=== PATIENT | male | born 1955 | race Caucasian/White ===

== ENCOUNTER 2020-01-02 13:04 | Outpatient (REF) | payer OTHER, SELFPAY ==
[2020-01-02 15:08] LABS: Estimated Average Glucose 120 mg/dL; Hemoglobin A1C 149.1048 umol/L; Hemoglobin A1c % 5.8 %
[2020-01-02 15:21] LABS: Anion Gap 12 (12-20); Blood Urea Nitrogen 15 mg/dL (9-16); Calcium 8.6 mg/dL (8.4-10.2); Carbon Dioxide 28 mmol/L (22-29); Chloride 105 mmol/L (96-108); Estimated Glomerular Filt Rate > 60; Glucose Random 95 mg/dL (60-115); Potassium 4.2 mmol/l (3.3-5.1); Sodium 141 mmol/L (135-145)
== END 2020-01-02 13:05 | disposition home or self-care (01) ==
LOC: HO.LAB 13:04
PROVIDERS: PCP Internal Medicine; Visit Provider Internal Medicine
DX: E78.00 Pure hypercholesterolemia, unspecified (principal); R73.03 Prediabetes
CPT/HCPCS: 80048; 83036

== ENCOUNTER 2020-06-02 10:12 | Outpatient (REF) | payer OTHER, SELFPAY ==
[2020-06-02 13:22] LABS: MANUAL DIFF FLAG NO
[2020-06-02 13:23] LABS: Basophils Percent Auto 0.5 % (0-2); Eosinophils Absolute Auto 0.2 X10*3/uL (0.0-0.4); Eosinophils Percent Auto 2.7 % (0-4); Hematocrit 44.2 % (42-52); Hemoglobin 15.2 g/dl (14.0-18.0); Imm Gran Abs Auto 0.01 X10*3/uL (0.00-0.03); Imm Gran Pct Auto 0.2 % (0.0-0.4); Lymphocytes Absolute Auto 1.9 X10*3/uL (1.2-4.9); Lymphocytes Percent Auto 30.9 % (20-40); Mean Corpuscular HGB Conc 34.4 g/dl (31.0-36.0); Mean Corpuscular Hemoglobin 31.9 pg (27.0-33.0); Mean Corpuscular Volume 92.7 fL (80-98); Mean Platelet Volume 9.9 fL (9.4-12.4); Monocytes Absolute Auto 0.4 X10*3/uL (0.1-1.2); Monocytes Percent Auto 7.1 % (2-11); Neutrophils Absolute Auto 3.6 X10*3/uL (2.0-8.3); Neutrophils Percent Auto 58.6 % (45-73); Platelet Count 245 X10*3/uL (160-400); Red Blood Count 4.77 X10*6/uL (4.60-5.80); White Blood Count 6.2 X10*3/uL (4.8-10.8)
[2020-06-02 13:25] LABS: Glucose Urine UA NEG (NEG); Leukocyte Esterase Urine NEG (NEG); Nitrite Urine NEG (NEG); PH 5.5 (5.0-8.0); Specific Gravity - Urine >= 1.030 (1.005-1.025); Urine Blood NEG (NEG); Urine Ketones NEG (NEG); Urine Protein NEG (NEG-TRACE)
[2020-06-02 13:30] LABS: Appearance Urine TURBID; Color Urine YELLOW
[2020-06-02 13:52] LABS: Alanine Aminotransferase 39 U/L (0-40); Albumin Level 4.1 g/dL (3.5-5.0); Alkaline Phosphatase 63 U/L (39-117); Anion Gap 14 (12-20); Aspartate Amino Transferase 23 U/L (5-37); Bilirubin Total 1.6 mg/dL (0.0-1.0); Blood Urea Nitrogen 17 mg/dL (9-16); Calcium 8.8 mg/dL (8.4-10.2); Carbon Dioxide 26 mmol/L (22-29); Chloride 104 mmol/L (96-108); Cholesterol 128 mg/dL; Estimated Glomerular Filt Rate > 60; Glucose Fasting 104 mg/dL (60-99); HDL Cholesterol 36 mg/dL; LDL Cholesterol Calculated 64 mg/dl; Lipase 29 U/L (8-78); Potassium 4.3 mmol/L (3.3-5.1); Sodium 140 mmol/L (135-145); Total Protein 6.6 g/dL (6.5-8.0); Triglycerides 141 mg/dL
[2020-06-02 14:03] LABS: Prostate Specific Antigen Scr 1.62 ng/mL (<0.05-4.0)
== END 2020-06-02 10:13 | disposition home or self-care (01) ==
LOC: HO.10HDL 10:12
PROVIDERS: Visit Provider Internal Medicine
DX: Z00.00 Encounter for general adult medical examination without abnormal findings (principal); Z13.220 Encounter for screening for lipoid disorders; Z12.5 Encounter for screening for malignant neoplasm of prostate
CPT/HCPCS: 36415; 80053; 80061; 81003; 83690; 84153; 85025

== ENCOUNTER → 2020-06-09 08:21 | Outpatient (REF) | payer OTHER, SELFPAY ==
--- NOTE | ~2020-06-09 | NM_ITS ---
EXERCISE MYOCARDIAL PERFUSION STUDY INDICATION: Abnormal EKG, shortness of breath, assess for coronary disease and ischemia TECHNIQUE: The patient was brought in for an exercise perfusion study on 06/09/2020. Patient performed exercise as per Wade protocol and was injected 35 mCi of sestamibi once target heart rate was achieved. Images were obtained using the SPECT gamma camera interlaced with the gating device. Images were obtained in supine position. Resting perfusion study was performed on 06/10/2020. Patient was administered 35 mCi of sestamibi intravenously at rest. Images were then obtained in supine position. Total DLP 109mGy-cm. Images were processed with the software and compared side to side in short axis, horizontal long axis and vertical long axis views. FINDINGS: Raw images were reviewed. The stress perfusion study showed no significant perfusion defects. Both uncorrected as well as CT attenuation corrected images were reviewed. The gated study shows normal LV systolic function with calculated LVEF of 72%. LV cavity is normal in size. The gated study shows normal wall thickening and contraction of segments. Resting study shows no significant perfusion abnormality. Gating at rest reveals normal wall motion with ejection fraction at 75%. The findings are consistent with no reversible or fixed perfusion abnormality. NM/NM thaddeus perf SPECT rest & str IMPRESSION: 1. Myocardial perfusion imaging study shows normal myocardial perfusion. No evidence of any ischemia or infarction. 2. Gated LVEF is > 70% during stress and rest. 3. Transient ischemic dilatation not present. EKG component of the test reported separately.
--- NOTE | 2020-06-09 08:30 | CA_ITS ---
Acquisition Time: 2020-06-09 08:33:38 Total Exercise Time: 00:04:05 Test Indications: Abnormal ECG Medications: Protocol: SAMANTHA Max HR: 151 BPM 96% of Pred: 156 BPM Max BP: 190/086 mmHG Max Work Load: 5.8 METS PT EXERCISED ON STD SAMANTHA PROTOCOL FOR 4 MIN INTO STAGE 2. NO CP OR SOB. T-WAVE INVERSION IN 2,3,f,v3-6.. NO ARRHYTHMIAS. PROLONGED T-WAVE INVERSION INTO 10 MIN OF RECOVERY. CLINICALLY NEG BUT WITH LIMITED EXERCISE DURATION OF ONLY 4 MIN.. AWAIT SCAN RESULTS. Referred By: Irineo De La Rosa Overread By: ROCAEL DE LA ROSA MD
== END ==
LOC: HO.CARD 08:21
PROVIDERS: Visit Provider Internal Medicine
DX: R94.31 Abnormal electrocardiogram [ECG] [EKG] (principal); R06.09 Other forms of dyspnea
CPT/HCPCS: 78452; 93017; A9500

== ENCOUNTER → 2020-06-10 14:19 | Outpatient (BNVA) | payer OTHER, SELFPAY | PROVIDERS: PCP Internal Medicine; Referring Provider Internal Medicine; Visit Provider Internal Medicine | DX: R94.31 Abnormal electrocardiogram [ECG] [EKG] (principal); R94.39 Abnormal result of other cardiovascular function study; E78.5 Hyperlipidemia, unspecified; Z82.49 Family history of ischemic heart disease and other diseases of the circulatory system | CPT/HCPCS: 93005 ==

== ENCOUNTER → 2020-07-30 10:17 | Outpatient (REF) | payer OTHER, SELFPAY ==
--- NOTE | 2020-07-30 10:20 | CA_ITS ---
Transthoracic Echocardiogram Patient (Last, First, Middle): Karri Burr, Gender: Male Date of : 1955 Age: 65 Procedure Date: 07/30/2020 Procedure Type: Transthoracic Echocardiogram Location: OP Height: 180.34 cm Weight: 104.33 kg BSA: 2.24 m2 Heart Rate: bpm BP: 128 / 84 mmHg Microscopist: ROHINI Referring MD: Abad Black MD Symptoms: R94.31 - Abnormal electrocardiogram [ECG] [EKG] Study Quality: Fair ECG Rhythm: Sinus Conclusions: - The left ventricular systolic function is normal. The calculated ejection fraction is 65% by biplane method. - No obvious valvular pathology seen on this study. Findings Left Ventricle Normal left ventricular cavity size. There is normal left ventricular wall thickness. The left ventricular systolic function is normal. The calculated ejection fraction is 65% by biplane method. There is no evidence of regional wall motion abnormalities. Diastolic function is normal for age. Right Ventricle Normal right ventricular cavity size and systolic function. Atria Both atria are normal in size. Aortic Valve There is a normal trileaflet aortic valve. There is no aortic valve stenosis. There is no aortic valve regurgitation. Mitral Valve The mitral valve appears normal. There is trace mitral valve regurgitation. There is no mitral valve stenosis. Pulmonic Valve The pulmonic valve was not well visualized. Tricuspid Valve Normal tricuspid valve structure. There is trace tricuspid valve regurgitation. The pulmonary artery systolic pressure is normal. Great Vessels The asc aorta and aortic arch are normal in size. Venous The inferior vena cava is mildly dilated and collapses greater than 50% with inspiration. Pericardium/Pleural There is no evidence of pericardial effusion. Prior Study Comparison No prior study available for comparison. Recommendations, Care & Conclusions No obvious valvular pathology seen on this study. Measurements M-Mode Liner Measurements Normals - Women/Men AOV Cusps: 2.40 1.5-2.6 cm/m2 2D Linear Measurements RVIDd: 3.12 RVIDd Index: 1.39 IVSd: 0.88 0.6-0.9/0.6-1.0 cm LVIDd: 4.47 3.9-5.3/4.2-5.9 cm LVIDd Index: 2.00 2.4-3.2/2.2-3.1 cm/m2 LVIDs: 3.28 2.0-3.6 cm LVPWd: 1.06 0.7-1.1 cm Ao Root: 3.30 2.1-3.5 cm LA Diam: 3.70 2.7-3.8/3.0-4.0 cm LAIDs Index: 1.65 1.5-2.3 cm/m2 LV Mass: 181.54 67-162/88-224 g LV Mass Index: 81.04 43-95/49-115 g/m2 LVOT Diam: 2.00 3.0+(-)1.3 cm 2D Systolic Function EF 4C: 67.70 >55% EF 2C: 58.30 >55% EF BiP: 64.80 >55% Mitral Valve MV Pk E: 1.02 MV PK A: 0.56 MV Decel Time: 200.00 E/A: 1.80 E'Lateral: 10.90 E'Medial: 8.27 E/E' Med: 12.30 E/E' Lat: 9.40 PHT: 58.00 MVA PHT: 3.79 Decel [place]: 5.12 Aortic Valve AoV Pk Inder: 1.38 AoV Mn Inder: 1.03 AoV VTI: 0.29 AoV Pk Grad: 8.00 Aov Mn Grad: 5.00 ISIAH Cont.VTI: 2.08 LVOT LVOT Pk Inder: 0.97 LVOT Mn Inder: 0.67 LVOT VTI: 0.19 LVOT Pk Grad: 4.00 LVOT Mn Grad: 2.00 LVOT Diam: 2.00 LVOT Area: 3.14 Diastolic Function MV Pk E: 1.02 MV Pk A: 0.56 E/A: 1.80 E'Medial: 8.27 E/E' Med: 12.30 E' Laterial: 10.90 E/E' Lat: 9.40 Tricuspid Valve RA Press: 8.00 Great Vessels Aorta Ao Root-2D: 3.30 2.0-3.7 cm Ao Asc: 3.30 2.1-3.4 cm Ao Arch: 2.40 Pulmonary Valve PV Pk Inder: 0.90 Peak PV Grad: 3.00 Updated in Other Vendor System with Status of Final Abad Black MD electronically signed on 07/31/2020 2:16:12 PM with status of Final
== END ==
LOC: HO.CARD 10:17
PROVIDERS: Visit Provider Internal Medicine
DX: R94.31 Abnormal electrocardiogram [ECG] [EKG] (principal)
CPT/HCPCS: 93306

== ENCOUNTER → 2020-09-13 08:18 | Outpatient (BNVA) | payer OTHER, SELFPAY | PROVIDERS: PCP Internal Medicine; Referring Provider Internal Medicine; Visit Provider Internal Medicine ==

== ENCOUNTER 2021-12-16 06:34 | Outpatient (REF) | payer MEDICARE, SELFPAY ==
[2021-12-16 06:40] LABS: MANUAL DIFF FLAG NO
[2021-12-16 07:36] LABS: Basophils Percent Auto 0.4 % (0-2); Eosinophils Absolute Auto 0.2 X10*3/uL (0.0-0.4); Eosinophils Percent Auto 2.5 % (0-4); Hematocrit 43.2 % (42.0-52.0); Imm Gran Abs Auto 0.03 X10*3/uL (0.00-0.03); Imm Gran Pct Auto 0.3 % (0.0-0.4); Lymphocytes Absolute Auto 1.3 X10*3/uL (1.2-4.9); Mean Corpuscular HGB Conc 34.7 g/dl (31.0-36.0); Mean Corpuscular Hemoglobin 32.1 pg (27.0-33.0); Mean Corpuscular Volume 92.5 fL (80.0-98.0); Mean Platelet Volume 9.8 fL (9.4-12.4); Monocytes Absolute Auto 0.6 X10*3/uL (0.1-1.2); Monocytes Percent Auto 6.1 % (2-11); Neutrophils Absolute Auto 6.9 x10*3/uL (2.0-8.3); Neutrophils Percent Auto 76.7 % (45-73); Platelet Count 215 X10*3/uL (160-400); Red Blood Count 4.67 X10*6/uL (4.60-5.80); Red Cell Distribution Width 12.1 % (11.0-16.0)
[2021-12-16 08:00] LABS: Alanine Aminotransferase 40 U/L (0-40); Alkaline Phosphatase 63 U/L (39-117); Anion Gap 17 (12-20); Aspartate Amino Transferase 22 U/L (5-37); Bilirubin Total 1.5 mg/dL (0.0-1.0); Blood Urea Nitrogen 15 mg/dL (9-16); Calcium 8.8 mg/dL (8.4-10.2); Carbon Dioxide 24 mmol/L (22-29); Chloride 105 mmol/L (96-108); Cholesterol 134 mg/dL; Estimated Glomerular Filt Rate > 60; Glucose Fasting 113 mg/dL (60-99); HDL Cholesterol 34 mg/dL; LDL Cholesterol Calculated 78 mg/dl; Potassium 4.4 mmol/L (3.3-5.1); Sodium 142 mmol/L (135-145); Total Protein 6.4 g/dL (6.5-8.0); Triglycerides 110 mg/dL
[2021-12-16 08:24] LABS: Prostate Specific Antigen 2.07 ng/mL (<0.05-4.0)
== END 2021-12-16 06:35 | disposition home or self-care (01) ==
LOC: HO.LAB 06:34
PROVIDERS: PCP Internal Medicine; Visit Provider Internal Medicine
DX: Z00.00 Encounter for general adult medical examination without abnormal findings (principal); Z12.5 Encounter for screening for malignant neoplasm of prostate
CPT/HCPCS: 36415; 80053; 80061; 84153; 85025

== ENCOUNTER 2022-01-09 09:58 | Outpatient (REF) | payer MEDICARE, SELFPAY ==
--- NOTE | ~2022-01-09 | US_ITS ---
EXAMINATION: US ABDOMEN COMPLETE CLINICAL INFORMATION: Enlarged liver. COMPARISON: Ultrasound abdomen 09/12/2012. TECHNIQUE: Real-time imaging of the abdominal viscera. FINDINGS: PANCREAS: Head and the body of the pancreas is homogeneous in echotexture. The tail is not visualized. ABDOMINAL AORTA: The proximal, mid, and distal segments are normal in caliber. INFERIOR VENA CAVA: Visualized portions are normal. LIVER: The liver is enlarged. The liver contour is normal. There is diffuse increased echogenicity seen throughout the liver. No focal hepatic lesion. There is no intrahepatic biliary duct dilatation seen. GALLBLADDER: There are echogenic mobile gallstones with mild wall thickness of 0.3 cm. The gallbladder is physiologically distended. No pericholecystic fluid collection or tenderness in the right upper quadrant. COMMON BILE DUCT: Normal in caliber measuring 0.5 cm in diameter. RIGHT KIDNEY: Normal. No hydronephrosis. No renal calculi or focal parenchymal lesions. The kidney measures 12.4 cm in maximum dimension. LEFT KIDNEY: Normal. No hydronephrosis. No renal calculi or focal parenchymal lesions. The kidney measures 12.2 cm in maximum dimension. SPLEEN: Normal. The spleen measures 10.5 cm in maximum dimension. FREE FLUID: None. US/US abdomen complete IMPRESSION: Cholelithiasis with mild wall thickening. The largest mobile gallbladder measures 0.8 cm. Mild hepatomegaly with diffuse hepatic steatosis. No focal lesion seen.
== END 2022-01-09 09:59 | disposition home or self-care (01) ==
LOC: HO.US 09:58
PROVIDERS: PCP Internal Medicine; Visit Provider Internal Medicine
DX: R22.9 Localized swelling, mass and lump, unspecified (principal)
CPT/HCPCS: 76700

== ENCOUNTER 2023-06-07 07:06 | Outpatient (REF) | payer MEDICARE, SELFPAY ==
[2023-06-07 07:28] LABS: MANUAL DIFF FLAG NO
[2023-06-07 08:01] LABS: Basophils Percent Auto 0.5 % (0-2); Eosinophils Absolute Auto 0.2 X10*3/uL (0.0-0.4); Eosinophils Percent Auto 2.6 % (0-4); Hemoglobin 14.5 g/dl (14.0-18.0); Imm Gran Abs Auto 0.02 X10*3/uL (0.00-0.03); Imm Gran Pct Auto 0.3 % (0.0-0.4); Lymphocytes Absolute Auto 1.8 X10*3/uL (1.2-4.9); Lymphocytes Percent Auto 28.5 % (20-40); Mean Corpuscular HGB Conc 34.5 g/dl (31.0-36.0); Mean Corpuscular Hemoglobin 31.3 pg (27.0-33.0); Mean Corpuscular Volume 90.5 fL (80.0-98.0); Mean Platelet Volume 9.4 fL (9.4-12.4); Monocytes Absolute Auto 0.5 X10*3/uL (0.1-1.2); Monocytes Percent Auto 7.9 % (2-11); Neutrophils Absolute Auto 3.9 x10*3/uL (2.0-8.3); Neutrophils Percent Auto 60.2 % (45-73); Platelet Count 230 X10*3/uL (160-400); Red Blood Count 4.64 X10*6/uL (4.60-5.80); Red Cell Distribution Width 12.4 % (11.0-16.0); White Blood Count 6.5 X10*3/uL (4.8-10.8)
[2023-06-07 08:06] LABS: Estimated Average Glucose 120 mg/dL; Hemoglobin A1c % 5.8 % (<6.0)
[2023-06-07 08:37] LABS: Alanine Aminotransferase 38 U/L (0-40); Albumin Level 3.9 g/dL (3.5-5.0); Alkaline Phosphatase 56 U/L (39-117); Anion Gap 9 (12-20); Aspartate Amino Transferase 23 U/L (5-37); Bilirubin Total 1.4 mg/dL (0.0-1.0); Blood Urea Nitrogen 16 mg/dL (9-16); Calcium 8.5 mg/dL (8.4-10.2); Carbon Dioxide 28 mmol/L (22-29); Chloride 108 mmol/L (96-108); Cholesterol 118 mg/dL (<200); Estimated Glomerular Filt Rate > 60; Glucose Fasting 122 mg/dL (60-99); HDL Cholesterol 31 mg/dL (>40); LDL Cholesterol Calculated 64 mg/dL (<100); Potassium 3.9 mmol/L (3.3-5.1); Sodium 141 mmol/L (135-145); Total Protein 6.5 g/dL (6.5-8.0); Triglycerides 116 mg/dL (<150)
[2023-06-07 08:44] LABS: Prostate Specific Antigen 2.05 ng/mL (<0.05-4.0)
[2023-06-07 08:56] LABS: Appearance Urine Clear; Color Urine Yellow; Glucose Urine UA Negative (Negative); Leukocyte Esterase Urine Negative (Negative); Nitrite Urine Negative (Negative); PH 5.5 (5.0-9.0); Specific Gravity - Urine 1.025 (1.005-1.025); Urine Blood Negative (Negative); Urine Ketones Negative (Negative); Urine Protein Negative (Neg-Trace)
[2023-06-07 08:57] LABS: Thyroid Stimulating Hormone 1.09 uIU/mL (0.32-4.0)
[2023-06-07 09:29] LABS: Creatinine Urine 277.47 mg/dL; Microalbum/Creatinine Ratio Ur 7.2 ug/mg cr (<30)
== END 2023-06-07 07:07 | disposition home or self-care (01) ==
LOC: HO.LAB 07:06
PROVIDERS: PCP Internal Medicine; Visit Provider Internal Medicine
DX: E78.00 Pure hypercholesterolemia, unspecified (principal); N40.0 Benign prostatic hyperplasia without lower urinary tract symptoms; R73.03 Prediabetes; Z12.5 Encounter for screening for malignant neoplasm of prostate
CPT/HCPCS: 36415; 80053; 80061; 81003; 82043; 82570; 83036; 84153; 84443; 85025

== ENCOUNTER 2024-03-04 10:22 | Outpatient (REF) | payer MEDICARE, SELFPAY ==
[2024-03-04 13:04] LABS: MANUAL DIFF FLAG NO
[2024-03-04 13:07] LABS: Basophils Percent Auto 0.7 % (0-2); Eosinophils Absolute Auto 0.2 X10*3/uL (0.0-0.4); Hematocrit 41.8 % (42.0-52.0); Hemoglobin 14.6 g/dl (14.0-18.0); Imm Gran Abs Auto 0.02 X10*3/uL (0.00-0.03); Imm Gran Pct Auto 0.3 % (0.0-0.4); Lymphocytes Absolute Auto 1.5 X10*3/uL (1.2-4.9); Lymphocytes Percent Auto 25.1 % (20-40); Mean Corpuscular HGB Conc 34.9 g/dl (31.0-36.0); Mean Corpuscular Hemoglobin 32.1 pg (27.0-33.0); Mean Corpuscular Volume 91.9 fL (80.0-98.0); Mean Platelet Volume 9.3 fL (9.4-12.4); Monocytes Absolute Auto 0.4 X10*3/uL (0.1-1.2); Monocytes Percent Auto 6.8 % (2-11); Neutrophils Absolute Auto 3.9 x10*3/uL (2.0-8.3); Neutrophils Percent Auto 64.1 % (45-73); Platelet Count 267 X10*3/uL (160-400); Red Blood Count 4.55 X10*6/uL (4.60-5.80); Red Cell Distribution Width 12.4 % (11.0-16.0); White Blood Count 6.1 X10*3/uL (4.8-10.8)
[2024-03-04 13:14] LABS: INTERNATIONAL NORM RATIO 0.9 (0.9-1.1); Prothrombin Time 10.5 SEC (10.9-12.4)
[2024-03-04 13:16] LABS: Partial Thromboplastin Time 28.5 SEC (26.0-36.8)
[2024-03-04 13:18] LABS: Alanine Aminotransferase 36 U/L (0-40); Alkaline Phosphatase 64 U/L (39-117); Anion Gap 7 (12-20); Aspartate Amino Transferase 25 U/L (5-37); Bilirubin Total 1.1 mg/dL (0.0-1.0); Blood Urea Nitrogen 17 mg/dL (9-16); Calcium 8.5 mg/dL (8.4-10.2); Carbon Dioxide 29 mmol/L (22-29); Chloride 108 mmol/L (96-108); Estimated Glomerular Filt Rate > 60; Glucose Random 115 mg/dL (60-115); Potassium 4.4 mmol/L (3.3-5.1); Sodium 140 mmol/L (135-145); Total Protein 6.9 g/dL (6.5-8.0)
== END 2024-03-04 10:23 | disposition home or self-care (01) ==
LOC: HO.10HDL 10:22
PROVIDERS: Visit Provider Internal Medicine
DX: I10 Essential (primary) hypertension (principal); E78.00 Pure hypercholesterolemia, unspecified; N40.0 Benign prostatic hyperplasia without lower urinary tract symptoms
CPT/HCPCS: 36415; 80053; 85025; 85610; 85730

== ENCOUNTER 2024-09-11 14:00 | Outpatient (AMB) | payer MEDICARE, SELFPAY ==
--- NOTE | 2024-09-11 13:59 | A.OFFPC_ITS ---
Vital Signs 09/11/24 14:02 Height 5 ft 11 in Weight 219 lb BMI 30.5 BP 132/70 Blood Pressure Location Lt brachial Position Sitting Respiration 16 Pulse 79 Pulse Source Pulse Oximeter Temp 97.0 F Temp Source Temporal Artery Scan Pulse Oximetry (%) 96 Oxygen Delivery Method Room Air Intake Visit Reasons: Routine - see comments Fiber Design Engineer Required: No Accompanied by: Self / Same As Patient Allergies No Known Allergies (No Known Allergies*) Allergy (Verified 09/11/24 13:59) Tobacco use date assessed: 09/11/24 HPI HPI Comments History of Present Illness Details The patient is a 69 year old male with a past medical history of hyperlipidemia, BPH, etoh, tobacco presenting for follow up. Last seen by pcp in February Hyperlipidemia-on lipitor 20mg daily. Colonoscopy 2019-Dr Damon-scheduled for upcoming 5 yr recall ROS CONSTITUTIONAL: Denies weight loss, fever and chills. HEENT: Denies changes in vision and hearing. RESPIRATORY: Denies SOB and cough. CV: Denies palpitations and CP GI: Denies abdominal pain, nausea, vomiting and diarrhea. : Denies dysuria and urinary frequency. MSK: Denies new myalgia and joint pain. SKIN: Denies rash and pruritus. NEUROLOGICAL: Denies headache PSYCHIATRIC: Denies recent changes in mood. PHYSICAL EXAM: GENERAL: Alert and oriented x 3. NAD EYES: EOMI. Anicteric. HENT: Moist mucous membranes. No scleral icterus. No cervical lymphadenopathy. LUNGS: Clear to auscultation bilaterally. CARDIOVASCULAR: Regular rate and rhythm. No murmur. No JVD. ABDOMEN: Soft, non-tender +bs EXTREMITIES: No edema. Non-tender. SKIN: No rashes or lesions. Warm. NEUROLOGIC: No focal neurological deficits. CN II-XII grossly intact PSYCHIATRIC: Cooperative. Appropriate mood and affect [facility] Medical History Family history of coronary artery disease Other and unspecified hyperlipidemia Surgical History History of colonoscopy (~09/05/19) No pertinent past surgical history Family History Father Kidney disease Mother History of four vessel coronary artery bypass graft Sister History of heart valve replacement Sister Ovarian cancer Social History Patient Tobacco Use Status: Current everyday Tobacco user Cigarettes Per Day: 2 Years Smoked: 49 years e-Cigarette/Vaping Use: Currently Using Physical exam (Primary Care) Vital Signs: Last Vital Signs Temp 97.0 F 09/11/24 14:02 Pulse 79 09/11/24 14:02 Resp 16 09/11/24 14:02 BP 132/70 09/11/24 14:02 Pulse Ox 96 09/11/24 14:02 Oxygen Delivery Method Room Air 09/11/24 14:02 BMI result Body Mass Index 30.5 Tobacco/Smoking Status: Tobacco use Status Tobacco use date assessed 09/11/24 09/11/24 14:05 Patient Tobacco Use Status Current everyday Tobacco 09/11/24 14:05 e-Cigarette/Vaping Use Currently Using 09/11/24 14:05 Coding Level of Care Code New Pt Level 4 (03166) Complex EM visit Add On G2211 Diagnoses Family history of coronary artery disease Z82.49 Tobacco use Z72.0 Hyperlipidemia, unspecified hyperlipidemia type E78.5 Hyperlipidemia type: unspecified Assessment & Plan Assessment & Plan (1) Family history of coronary artery disease: Code(s): Z82.49 - Family history of ischemic heart disease and other diseases of the circulatory system Category: Medical (2) Tobacco use: Code(s): Z72.0 - Tobacco use Category: Social Hx (3) Hyperlipidemia: Code(s): E78.5 - Hyperlipidemia, unspecified Category: Medical Qualifiers: Hyperlipidemia type: unspecified Qualified Code(s): E78.5 - Hyperlipidemia, unspecified Plan 69 year old to establish care past medical, surgical, social reviewed HLD-continue statin Tobacco use-referral to ldct screening Labs ordered Orders: Orders Lipid Panel 09/12/24 E78.5 - Hyperlipidemia, unspecified, R53.83 - Other fatigue, R79.89 - Other specified abnormal findings of blood chemistry, Z13.0 - Encounter for screening for diseases of the blood and blood-forming organs and certain disorders involving the immune mechanism, Z13.228 - Encounter for screening for other metabolic disorders Hemoglobin A1c 09/12/24 E78.5 - Hyperlipidemia, unspecified, R53.83 - Other fatigue, R79.89 - Other specified abnormal findings of blood chemistry, Z13.0 - Encounter for screening for diseases of the blood and blood-forming organs and certain disorders involving the immune mechanism, Z13.228 - Encounter for screening for other metabolic disorders Vitamin D 25-OH (D2 and D3) 09/12/24 E78.5 - Hyperlipidemia, unspecified, R53.83 - Other fatigue, R79.89 - Other specified abnormal findings of blood chemistry, Z13.0 - Encounter for screening for diseases of the blood and blood- forming organs and certain disorders involving the immune mechanism, Z13.228 - Encounter for screening for other metabolic disorders Vitamin B12 and Folate 09/12/24 E78.5 - Hyperlipidemia, unspecified, R53.83 - Other fatigue, R79.89 - Other specified abnormal findings of blood chemistry, Z13.0 - Encounter for screening for diseases of the blood and blood-forming organs and certain disorders involving the immune mechanism, Z13.228 - Encounter for screening for other metabolic disorders Complete Blood Count Auto Diff 09/12/24 E78.5 - Hyperlipidemia, unspecified, R53.83 - Other fatigue, R79.89 - Other specified abnormal findings of blood chemistry, Z13.0 - Encounter for screening for diseases of the blood and blood- forming organs and certain disorders involving the immune mechanism, Z13.228 - Encounter for screening for other metabolic disorders Comprehensive Met. Panel 09/12/24 E78.5 - Hyperlipidemia, unspecified, R53.83 - Other fatigue, R79.89 - Other specified abnormal findings of blood chemistry, Z13.0 - Encounter for screening for diseases of the blood and blood-forming organs and certain disorders involving the immune mechanism, Z13.228 - Encounter for screening for other metabolic disorders Prostate Specific Antigen 09/12/24 E78.5 - Hyperlipidemia, unspecified, R53.83 - Other fatigue, R79.89 - Other specified abnormal findings of blood chemistry, Z13.0 - Encounter for screening for diseases of the blood and blood-forming organs and certain disorders involving the immune mechanism, Z13.228 - Encounter for screening for other metabolic disorders Referrals Lung Cancer Screening Referral Z72.0 - Tobacco use
[2024-09-11 14:02] VITALS: BP 132/70; PULSE 79; RESP 16; TEMP 36.1; O2SAT 96; BMI 30.5
--- OUTSIDE RECORDS SUMMARY | 2024-09-11 14:12 | XMS_ITS | Encounter Summary ---
Author Organization [facility] Address [address] [place] [address] Phone Care Team Providers Care Quilt Maker Name Role Phone Marly Friedman MD Primary Care Provider + [phone] Encounter Details Date Type Department Care Team (Late st Contact Info) Description 07/31/2024 Procedure Pass OR Admitting Dept - Virtual Department [address] [place] [address] Social History Tobacco Use Types Packs/Day Years Used Date Smoking Tobacco: Every Day Cigarettes Smokeless Tobacco: Never Comments:Smoking pack per we ek Alcohol Use Standard Drinks/Week Comments Yes 8 (1 standard drink = 0.6 oz pur e alcohol) weekly Education Answer Date Recorded Are you interested in more education? Not on nisreen e 07/30/2024 Are you concerned about learning? Not on file 07/30/2024 No 07/30/2024 No 07/30/2024 Digital Access Answer Date Recorded No 07/30/2024 No 07/30/2024 Reliable internet access at home? Not on file 07/30/2024 Device with a working camera? Not on file Intimate Partner Violence Answer Date R ecorded Are you denied basic needs s uch as food, clothing, or medical care? No 07/31/2024 In the past 12 months have y ou been in a relationship with a person who hurts, threatens, or tries to control you? No 07/31/2024 Are you denied basic needs s uch as food, clothing, or medical care? No 07/31/2024 In the past 12 months have y ou been in a relationship with a person who hurts, threatens, or tries to control you? No 07/31/2024 Sex and Gender Information Value Date Recorded Sex Assigned at Not on file Legal Sex Male 1:51 PM EDT Gender Identity Not on file Sexual Orientation Not on file documented as of this encounter Plan of Treatment Not on file documented as of this encounter Visit Diagnoses Not on filedocumented in this encounter Care Teams Quilt Maker Relationship Specialty Start Date End Date Marly Friedman MD [address] [place] [address] [place] [address] PCP - General Internal Medicine 07/30/24 documented as of this encounter Additional Source Comments The information contained in this document represents components of the legal health record. It is not the complete legal health record.[facility]
--- OUTSIDE RECORDS SUMMARY | 2024-09-11 14:12 | XMS_ITS | Patient Health Record ---
Author Organization [facility] Address [address] [place] [id number] Care Team Providers Care Political Science Professor Name Role Phone Marly Miller M.D. Primary Care Provider Unavail Phoenix Bermudez Jr Unavailable Reason For Referral No Information Medications Medication SIG (Take, Route, Frequency, Duration) Notes Start Date End Date Status MiraLax (colon prep) 8.3 ounce ((238) grams mixed with Gatorade or Crystal Light orally begin at 5:00 p.m. the day before the procedure for 1 day 06/25/2019 Active Atorvastatin Calcium 20 MG TAKE 1 TABLET BY MOUTH EVERY DAY Oral for 90 Active Vitamin D3 1.25 MG (37296 UT) 1 capsule Orally Once a day Active Immunizations Vaccine Route Administration Date Status Comme nts Influenza Unknown 01/12/2019 Administered Social History Tobacco Use: Social History Observation Description Date Details (start date - stop date) Current Smoker NA - NA Tobacco Use/Smoking Question Answer Notes Patient is a current smoker How often do you smoke cigarettes? every day How many cigarettes a day do you smoke? 5 or les s Alcohol Screen Question Answer Notes Did you have a drink contain ing alcohol in the past year? Yes How often did you have a dri nk containing alcohol in the past year? 2 to 4 times a month (2 points) How many drinks did you have on a typical day when you were drinking in the past year? 5 or 6 drinks (2 points) Points 4 Interpretation Positive Problems Problem Type SNOMED Code ICD Code Onset Dates Problem Status W/U Status Risk Notes Problem 384204003 Colon cancer screening (Z12.11) Active confirmed Problem 475259332 Encounter for other preprocedural examination (Z01.818) Active confirmed Plan Of Treatment Future Test Test Name Order Date COLONOSCOPY 06/25/2019 Next Appt Details Provider Name:Phoenix Cerna jay Jr, 12/10/2024 10:20:00 AM, [address] [facility], [address], [place], [address], Insurance Providers Payer Name Payer Address Payer Phone Subscriber Number Group Number Insured Name Patient Relationship to Insured Coverage Start Date Coverage End Date [facility] [address] [place], [place] [id number] JACKIE WOODWARD Self - patient is the insured Medical (General) History Medical History History ICD Code elevated cholesterol low vitamin D Surgical History Surgery Date(Month/Year)
== END 2024-09-11 14:27 | disposition home or self-care (01) ==
LOC: HO.HMCHD 14:00
PROVIDERS: PCP Internal Medicine; Visit Provider Internal Medicine
DX: Z82.49 Family history of ischemic heart disease and other diseases of the circulatory system (principal); Z72.0 Tobacco use; E78.5 Hyperlipidemia, unspecified

== ENCOUNTER → 2024-09-11 14:00 | Outpatient (BNVA) | payer MEDICARE, SELFPAY | PROVIDERS: PCP Internal Medicine; Visit Provider Internal Medicine | DX: E78.5 Hyperlipidemia, unspecified (principal); N40.0 Benign prostatic hyperplasia without lower urinary tract symptoms; Z72.0 Tobacco use; Z79.899 Other long term (current) drug therapy; Z82.49 Family history of ischemic heart disease and other diseases of the circulatory system | CPT/HCPCS: 99202 ==

== ENCOUNTER 2024-09-12 08:16 | Outpatient (REF) | payer MEDICARE, SELFPAY ==
--- OUTSIDE RECORDS SUMMARY | 2024-09-12 08:25 | XMS_ITS | Patient Health Record ---
Author Organization [facility] Address [address] [place] [id number] Care Team Providers Care Telephone Ad Taker Name Role Phone Marly Miller M.D. Primary [...] for 90 Active Vitamin D3 1.25 MG (81008 UT) 1 capsule Orally Once a day [...] Problem Status W/U Status Risk Notes Problem 069801373 Colon cancer screening (Z12.11) Active confirmed Problem 122303928 Encounter for other preprocedural examination (Z01.818) Active confirmed Plan Of Treatment Future Test Test Name Order Date COLONOSCOPY 06/25/2019 Next Appt Details Provider Name:Phoenix Cerna jay Jr, 12/10/2024 10:20:00 AM, [address] [facility], [address], [place], [address], Insurance Providers Payer Name Payer Address Payer Phone Subscriber Number Group Number Insured Name Patient Relationship to Insured Coverage Start Date Coverage End Date [facility] [address] [place], [place] [id number] [phone] [id number] JACKIE WOODWARD Self - patient is the insured Medical (General) History Medical History History ICD Code elevated cholesterol low vitamin D Surgical History Surgery Date(Month/Year)
--- OUTSIDE RECORDS SUMMARY | 2024-09-12 08:25 | XMS_ITS | Encounter Summary ---
Author Organization [facility] Address [address] [place] [address] Phone Care Team Providers Care Boiler Shop Supervisor Name Role Phone Marly Friedman MD Primary Care Provider + [phone] Encounter Details Date Type Department Care Team (Late st Contact Info) Description 07/31/2024 Procedure Pass OR Admitting Dept - Virtual Department [address] [place] [address] Social History Tobacco Use Types Packs/Day Years [...] on filedocumented in this encounter Care Teams Boiler Shop Supervisor Relationship Specialty Start Date End Date Marly Friedman MD [address] [place] [address] [place] [address] PCP - General Internal Medicine 07/30/24 documented as of this encounter Additional Source Comments The information contained in this document represents components of the legal health record. It is not the complete legal health record.[facility]
[2024-09-12 08:33] LABS: MANUAL DIFF FLAG NO
[2024-09-12 08:55] LABS: Hematocrit 40.3 % (42.0-52.0); Hemoglobin 14.2 g/dl (14.0-18.0); Imm Gran Abs Auto 0.01 X10*3/uL (0.00-0.03); Imm Gran Pct Auto 0.2 % (0.0-0.4); Lymphocytes Absolute Auto 1.7 X10*3/uL (1.2-4.9); Mean Corpuscular HGB Conc 35.2 g/dl (31.0-36.0); Mean Corpuscular Hemoglobin 32.0 pg (27.0-33.0); Mean Corpuscular Volume 90.8 fL (80.0-98.0); NRBC Abs Auto 0.000 X10*3/uL (0.0-0.012); NRBC Pct Auto 0.0 /100WBC (0.0-0.2); Platelet Count 226 X10*3/uL (160-400); Red Blood Count 4.44 X10*6/uL (4.60-5.80); White Blood Count 6.1 X10*3/uL (4.8-10.8)
[2024-09-12 09:06] LABS: Hemoglobin A1C 150.2014 umol/L; Total Hemoglobin (HGBA1C) 3781.5542 umol/L
[2024-09-12 09:21] LABS: Alanine Aminotransferase 29 U/L (0-40); Albumin Level 4.1 g/dL (3.5-5.0); Alkaline Phosphatase 74 U/L (39-117); Anion Gap 10 (12-20); Aspartate Amino Transferase 27 U/L (5-37); Blood Urea Nitrogen 14 mg/dL (9-16); Calcium 8.4 mg/dL (8.4-10.2); Carbon Dioxide 26 mmol/L (22-29); Chloride 109 mmol/L (96-108); Cholesterol 115 mg/dL (<200); Estimated Glomerular Filt Rate > 60; HDL Cholesterol 34 mg/dL (>40); Potassium 4.3 mmol/L (3.3-5.1); Sodium 141 mmol/L (135-145); Total Protein 6.5 g/dL (6.5-8.0); Triglycerides 83 mg/dL (<150)
[2024-09-12 09:51] LABS: Folate 13.8 ng/mL (> or = 4.0); Prostate Specific Antigen 3.86 ng/mL (<0.05-4.0); Vitamin B12 522 pg/mL (200-900)
[2024-09-16 17:47] LABS: Vitamin D 25-OH, D2 <4 ng/mL; Vitamin D 25-OH, D3 37 ng/mL; Vitamin D 25-OH, Total 37 ng/mL (30-100)
== END 2024-09-12 08:17 | disposition home or self-care (01) ==
LOC: HO.LAB 08:16
PROVIDERS: PCP Internal Medicine; Visit Provider Internal Medicine
DX: Z13.228 Encounter for screening for other metabolic disorders (principal); Z13.0 Encounter for screening for diseases of the blood and blood-forming organs and certain disorders involving the immune mechanism; E78.5 Hyperlipidemia, unspecified; R79.89 Other specified abnormal findings of blood chemistry; R53.83 Other fatigue; Z12.5 Encounter for screening for malignant neoplasm of prostate
CPT/HCPCS: 36415; 80053; 80061; 82306; 82607; 82746; 83036; 84153; 85025

== ENCOUNTER 2024-11-07 09:43 | Outpatient (AMB) | payer MEDICARE, SELFPAY ==
--- NOTE | 2024-11-07 07:58 | MHC.OFFVIS ---
Intake Visit Reasons: Current Smoker Allergies No Known Allergies (No Known Allergies*) Allergy (Verified 09/11/24 13:59) HPI HPI Current Smoker: Details: Initial visit for this 69yo smoker with a 25+PYH. Patient started smoking at age 16 for 53 years at 1/2ppd. Currently down to 1/4ppd. . Denies marijuana use. Denies second hand smoke exposure. Denies exposure to chemicals or substances like asbestos. . Denies known family history of lung cancer. Denies personal history of cancers. Denies chest CT in last year. . Denies recent travel outside the [place]. Denies recent respiratory illness or recent hospitalization for respiratory issues. History of testing positive for COVID. Admits receiving COVID Vaccine. . Denies fever, chills, new/worsening cough, hemoptysis, hoarseness or dysphagia. Denies significant chest pain, significant dyspnea or unintentional weight loss. Patient Lung Cancer Screening Questionnaire reviewed with patient by provider. . Shared Decision Making Completed. Patient meets criteria. Discussed in detail with patient, the risk vs benefit of LDCT screening. Patient consents to proceed with scan. Discussed smoking cessation. [facility] Medical History (Updated 11/07/24 @ 09:49 by Linda Cosme PA-C) Tubular adenoma of colon Hyperlipidemia Nicotine dependence, cigarettes, uncomplicated Family history of coronary artery disease Surgical History (Updated 09/19/24 @ 07:58 by Linda Cosme PA-C) History of nasal polypectomy History of colonoscopy Family History Father Kidney disease Mother History of four vessel coronary artery bypass graft Sister History of heart valve replacement Sister Ovarian cancer Social History (Updated 11/07/24 @ 09:50 by Linda Cosme PA-C) Patient Tobacco Use Status: Current everyday Tobacco user Cigarettes Per Day: 5 Years Smoked: (onset 16yo, 1/2ppd x 53yrs, now 1/4ppd, 25+PYH) e-Cigarette/Vaping Use: Currently Using Assessment & Plan Assessment & Plan (1) Nicotine dependence, cigarettes, uncomplicated: Comment: (onset 16yo, 1/2ppd x 53yrs, now 1/4ppd, 25+PYH) Code(s): F17.210 - Nicotine dependence, cigarettes, uncomplicated Category: Medical Plan: - SDM visit completed today in office. - Patient meets criteria for LDCT for lung cancer screening purposes and is asymptomatic. - Smoking cessation counseling offered. Patients can always call [phone]. - Will arrange for a LDCT scan of the chest for screening purposes at [facility]. - Risks, benefits, and alternatives were discussed in detail and the patient agrees to proceed. - Risks discussed include but are not limited to: radiation exposure, anxiety during testing and while awaiting results, false negatives, false positives and possibility of additional intervention such as further imaging or surgical procedures for benign disease. - Benefits are obviously detection of lung cancer at an early stage which can lead to improved outcomes. - Discussed the importance of screening program compliance with adherence to yearly LDCT scan as scheduled - or sooner interval scans for personalized screening regimen. - Discussed follow up plan. Our office will send a letter discussing results and if needed set up phone call and office visit based on CT findings. - Patient educated on results categorization and the management decisions for suspicious findings potentially found on the screening LDCT scan. Any patient with a Lung RADS score of 3 or 4 will be reviewed by a multidisciplinary team at [facility] to form a plan of action in regards to scan findings. - If further work up is warranted for a suspicious lung finding this will be followed by the Lung Cancer Screening program in conjunction with the Thoracic Surgery Department at [facility]. - A copy of the office note and LDCT will be sent to the patient's PCP - as well as documentation on any associated further plans of care. - Incidental findings on LDCT are the PCP's responsibility. These findings are indicated with an S finding on the LDCT Assessment. A note discussing the findings will be sent to the PCP who is then responsible for further management. - All questions answered.? Coding Level of Care Code Lung Cancer Screening G0296 Diagnoses Nicotine dependence, cigarettes, uncomplicated F17.210
--- OUTSIDE RECORDS SUMMARY | 2024-11-07 10:46 | XMS_ITS | Patient Health Record ---
Author Organization [facility] Address [address] [place] [address] Care Team Providers Care Internal Carver Name Role Phone Marly Miller M.D. Primary [...] for 90 Active Vitamin D3 1.25 MG (14957 UT) 1 capsule Orally Once a day [...] Problem Status W/U Status Risk Notes Problem 938814510 Colon cancer screening (Z12.11) Active confirmed Problem 298466556 Encounter for other preprocedural examination (Z01.818) Active confirmed Plan Of Treatment Future Test Test Name Order Date COLONOSCOPY 06/25/2019 Next Appt Details Provider Name:Phoenix Cerna jay Jr, 12/10/2024 10:20:00 AM, [address] [facility], [address], [place], [address], Insurance Providers Payer Name Payer Address Payer Phone Subscriber Number Group Number Insured Name Patient Relationship to Insured Coverage Start Date Coverage End Date [facility] [address] [place], [place] [id number] JACKIE WOODWARD Self - patient is the insured Medical (General) History Medical History History ICD Code elevated cholesterol low vitamin D Surgical History Surgery Date(Month/Year)
--- OUTSIDE RECORDS SUMMARY | 2024-11-07 10:46 | XMS_ITS | Data Portability ---
Author Organization [place] [facility], Allergy Address [address] [place] [address] Care Team Providers Care Multimedia Specialist Name Role Phone ShawnaPLACIDO TRIPP Referring Provider [phone] Assessment Encounter Date Assessment Date Assessment LastModified by Organization Details LastModified Time 08/12/2024 08/12/2024 69yo male presents following nasal lesion excision on 07/29/[address] Johansen. He is doing well post-operatively without epistaxis recurrence. Anterior rhinoscopy demonstrates 4 mm mucoid crusting overlying right anterior superior septum with cautery changes. Recommend discontinuing mupirocin, and starting intranasal saline 4-6 times daily for 1 week, using oppsite hand technique. Patient will follow-up as needed with recurrence of epistaxis. [email or web address] Not available 08/12/2024 12:29:40 Plan of Treatment Reminders Order Date Submit Date Provider Last Modified By Organization Details Last Modified Time Details Appointments None recorded. Lab None recorded. Referral None recorded. Procedures None recorded. Surgeries endoscopy, nasal/sinu s, surgical, with biopsy, polypectom y or debridemen t (SURG) 2024 025 [email or web address] Not available 11:04:[address], maxillofac ial, w/wo contrast - evaluate right nasal septal lesion and evaluate for additional extent or bony destructio n 2024 025 [email or web address] [facility], [address] [facility], [address], [place], [address], 10:14:33 Medication Orders None recorded. Patient TargetsNo targets recorded. Patient InstructionsNo instructions recorded. Reason for Referral None Reported. Results Created Date Observation Date Name Description Value Unit Range Abnormal Flag Note LastModifiedBy Organization Detail LastModifiedTime 07/03/19 CT, sinus es, w/o contr ast No observ ation record ed. [email or web address] [facility] [address] [facility], [place], [address], 07/02/2024 11:56:52 07/10/19 25 07/08/2024 CT, sinus es, w/ contr ast No observ ation record ed. [email or web address] [facility] [address] [facility] [address], [place], [address], 07/10/2024 10:17:41 08/20/19 25 07/31/2024 clini julian photo * No observ ation record ed. [email or web address] Not Available 09/2024 10:02:49 Result Notes None recorded. Problems Name Problem SNOMED Code Status Onset Date Resolution Date Notes Provider Name and Address Organization Details Recorded Time Lesion of nasal cavity 95127190201767 9108 Active 2024 MONICA Vanegas MD [address] [place] [address], [facility] [place], [address], [facility] - [facility] 5 10:58:02 Recurrent bleeding of nose Active 2024 MONICA Vanegas MD [address] [place] [address], [facility] [place], [address], [facility] 5 10:58:06 Disorder of face 186739997 Active 2024 Krystle brito [place] [facility] 5 11:55:21 Lesion of nose 658484198 Active 2024 MONICA Vanegas MD [address] [place] [address], [place], [address], [facility] 5 16:16:10 Problem Notes None recorded. Procedures Surgical History Date Name Laterality Status Provider Name and Address Organization Details Recorded Time 06/19/202 5 nasal endoscopy with nasal polypectomy completed MONICA JOHANSEN MD [address] [facility],[place] [address], [place], [address], [facility] - [facility] 07/31/2024 11:10:33 5 NasalEndoscopy_ DP completed MONICA JOHANSEN MD [address] [facility] [address], [place], [address], [facility] - [facility] 06/20/2024 10:57:44 Imaging Results None recorded. Procedure Notes None recorded. Medical Equipment None Reported. Medications Name Sig Start Date Stop Date Status Note LastModified by Organization Details LastModified Time atorvastatin 20 mg tablet TAKE 1 TABLET BY MOUTH EVERY DAY active Not Available Not Available No t Available mupirocin 2 % topical ointment APPLY A SMALL AMOUNT TO AFFECTED AREA 3 TIMES A DAY active Not Available Not Available No t Available Vitals Date Recorded Body height Body mass index (BMI) Body weight Provider Name and Address Organization Details Last Updated DateTime 06/20/2024 180.34 cm 32.1 kg/m2 944530.25 g Pavan Bain [place] [facility] 06/20/2024 10:42:31 Date Recorded Body height Body mass index (BMI) Body weight Provider Name and Address Organization Details Last Updated DateTime 08/12/2024 180.34 cm 32.1 kg/m2 285092.25 g Amalia Dorantes [facility] 08/12/2024 10:02:48 Social History None recorded. Functional Status None recorded. Mental Status None recorded. Family History Nothing Reported. Medical History Condition Response Allergies/Hayfever N Heart Problems N Anxiety N Tonsil Infections N Emphysema N Migraines N Thyroid Problems N Glaucoma N Developmental Delay N Depression N COPD N Nasal or Sinus Problems N Anemia N Immune System Disorder N Anesthesia Complications N Heart Attack ([place]) N Other Skin Condition N Diabetes N Rhinitis N Bleeding Disorder N Food Allergy N Hearing Loss N Arthritis N Hyperlipidemia N Cancer N Stroke N Dementia N Nasal polyps N Asthma N Sleep Disorder N High Cholesterol N GERD/Reflux N Liver Disease N Headaches N Fibromyalgia N Hypertension N Speech Delay N Kidney Disease N Past Encounters Encounter ID Performer Location Encounter Start Date Encounter Closed Date Diagnosis/Indication Diagnosis SNOMED-CT Code Diagnosis ICD10 Code Diagnosis IMO Codes Diagnosis Note [id number] MONICA JOHANSEN MD [facility] on [address] [place] [address] 06/20/2024 10:16:07 06/20/2024 10:57:41 Lesion of nasal cavity [id number] 65679377 J34.89 5643135 He has a friable lesion of his right nasal septal mucosa. This is likely a pyogenic granuloma. I recommend excision in the OR due to the risk of bleeding. I discussed the risk of scarring, septal perforatio n, need for additional procedures as well as recurrence . He understand s the risks and wants to proceed. Nasal endoscopy was notable for the lesion but not for other abnormalit ies. It seems to be limited to the superior septum. I will obtain a contrasted CT to ensure there is no additional extent or bony destructio n. Recurrent bleeding of nose 9214920103 102 R04.0 36030127 Likely due to the granuloma. I discussed using Afrin soaked cotton balls and pressure if he has bleeding in the interim or if severe bleeding he needs to go to the emergency room. [id number] ALEJANDRO BOWMAN PA-C [facility] [address] [place] [address] 08/12/2024 09:47:57 08/12/2024 10:15:50 Lesion of nose 927431098 J34.89 991283 Recurrent bleeding of nose 0596959307 102 R04.0 [id number] Health Concerns Section Related Observation LastModified by Organization Detai ls LastModified Time None Recorded Concern Status LastModified by Organization Details LastModified Time None Recorded Advance Directives Directive None Recorded Payers Insurance Date Sequence Insurance Name Policy Number Policy Wiley Covered Member ID Wiley Member ID Guarantor Name 08/12/2024 1 [place] (MEDICARE [place]ACEMENT PPO) [id number] Karri Burr [id number] Karri Burr 06/20/2024 1 [place] Karri Burr [id number] Karri Burr 06/20/2024 1 [place] [place] Karri Burr [id number] Karri Burr Notes Date Note Type Note Provider Name and Address Organization Details Recorded Time 06/20/2024 text/html ROS as noted in the HPI Hx of epistaxis on the right for the last 6 months. He saw an ENT in [place] who noted a growth and referred him here. Denies pain. Denies nasal obstruction. He is not on blood thinners. It bleeds a few times a week. He does smoke. He has not had any imaging. MOINCA JOHANSEN MD [address] [facility],[address], [address], [facility] - [facility] 06/20/2024 11:04:28 08/12/2024 text/html ROS as noted in the HPI 69yo male presents following nasal lesion excision on 07/29/[address] Johansen. He is doing well post-op without recurrence of nasal bleeding. Pathology shows benign ulcerated nasal mucosa with granulation tissue. He has been using mupirocin 3 times daily. No new concerns. SHIV FAM MD [address] [place] [address],[place] [address], [place], [address], [facility] - [facility] 08/12/2024 19:17:23
--- OUTSIDE RECORDS SUMMARY | 2024-11-07 10:46 | XMS_ITS | Encounter Summary ---
Author Organization [facility] Address [address] [place] [address] Phone Care Team Providers Care Machine Tool Designer Name Role Phone Marly Friedman MD Primary Care Provider + [phone] Encounter Details Date Type Department Care Team (Late st Contact Info) Description 07/31/2024 Procedure Pass OR Admitting Dept - Virtual Department [address] [place] [address] Social History Tobacco Use Types Packs/Day Years [...] on filedocumented in this encounter Care Teams Machine Tool Designer Relationship Specialty Start Date End Date Malry Friedman MD [address] [place] [address] [place] [address] PCP - General Internal Medicine 07/30/24 documented as of this encounter Additional Source Comments The information contained in this document represents components of the legal health record. It is not the complete legal health record.[facility]
--- OUTSIDE RECORDS SUMMARY | 2024-11-07 10:46 | XMS_ITS | Clinical Summary ---
Author Organization [facility] Address [address] [place] [address] Phone Care Team Providers Care Bed And Breakfast Cook Name Role Phone Marly Friedman MD Primary Care Provider + [phone] Allergies No known active allergies Medications atorvastatin (LIPITOR) 20 MG tablet Take 20 mg by mouth daily. Active Social History Tobacco Use Types Packs/Day Years Used Date Smoking Tobacco: Every Day Cigarettes Smokeless Tobacco: Never Tobacco Cessation:Ready to Q uit: No Comments:Smoking pack per week Alcohol Use Standard Drinks/Week Comments Yes 8 [...] on file Sexual Orientation Not on file Last Filed Vital Signs Vital Sign Reading Time Taken Comments Blood Pressure 130/77 07/31/2024 12:15 PM EDT Pulse 82 07/31/2024 11:30 AM EDT Temperature 36.4 C (97.5 F) 07/31/2024 12:15 PM EDT Respiratory Rate 23 07/31/2024 11:30 AM EDT Oxygen Saturation 94% 07/31/2024 12:15 PM EDT Inhaled Oxygen Concentration - - Weight 104.3 kg (230 lb) 07/31/2024 9:15 AM EDT Height 180.3 cm (5' 11 ) 07/31/2024 9:15 AM EDT Body Mass Index 32.08 07/31/2024 9:15 AM EDT Plan of Treatment Health Maintenance Due Date Last Done Comments Adult Td,Tdap Booster 1956 LIPID PANEL 1956 DEPRESSION SCREENING 1968 SMOKING Hx and SMOKELESS TOBACCO SCREENING 01/20/1969 HEPATITIS C SCREENING 01/20/1974 PNEUMOCOCCAL VACCINES (50+ years) (1 of 2 - PCV) 01/20/1975 SCREENING FOR DIABETES 01/20/1991 COLOGUARD 01/20/2001 COLONOSCOPY 01/20/2001 COLORECTAL CANCER SCREENING 01/20/2001 FIT TEST 01/20/2001 FOBT 01/20/2001 SIGMOIDOSCOPY 01/20/2001 VIRTUAL COLONOSCOPY 01/20/2001 ZOSTER VACCINES (1 of 2) 01/20/2006 ABDOMINAL AORTIC ANEURYSM (AAA) SCREENING 01/20/2021 INFLUENZA VACCINE (#1) 2024 , 12/13/2019, 12/20/2018, Additional history exists COVID-19 VACCINE ( - season) 2024 10/27/2020, 09/28/2020 RSV VACCINE (1 - 1-dose 75+ series) 01/20/2031 HEPATITIS A VACCINES Aged Out No long er eligible based on patient's age to complete this topic HIB VACCINES Aged Out No longer eligi ble based on patient's age to complete this topic MENINGOCOCCAL VACCINES (ACWY) Aged Out No longer eligible based on patient's age to complete this topic MENINGOCOCCAL VACCINES (B) Aged Out N o longer eligible based on patient's age to complete this topic Medical Devices Not on file Insurance MEDICARE PART A & B [facility] MEDICARE PPO BLUE REPLACEMENT MEDICARE PART A & B MEDICARE PART A & B [facility] MEDICARE PPO BLUE REPLACEMENT MEDICARE PART A & B [place] BL[place] RE[place] MEDICARE PART A & [place] MEDICARE PART A & B Care Teams Bed And Breakfast Cook Relationship Specialty Start Date End Date Marly Friedman MD [address] [place] [address] [place] [address] PCP - General Internal Medicine 07/30/24 Additional Source Comments The information contained in this document represents components of the legal health record. It is not the complete legal health record.[facility]
== END 2024-11-07 10:04 | disposition home or self-care (01) ==
LOC: HO.HPS 09:43
PROVIDERS: PCP Internal Medicine; Referring Provider Internal Medicine; Visit Provider Physician Assistant Medical
DX: F17.210 Nicotine dependence, cigarettes, uncomplicated (principal)
CPT/HCPCS: G0296

== ENCOUNTER 2024-11-07 10:01 | Outpatient (REF) | payer MEDICARE, SELFPAY ==
--- NOTE | ~2024-11-07 | CT_ITS ---
EXAMINATION: CT LUNG SCREENING HISTORY: F17.210 - Nicotine dependence, cigarettes, uncomplicated TECHNIQUE: Low dose axial images were obtained from the sternal notch to upper abdomen without IV contrast per standard departmental protocol. Sagittal and coronal reformatted images were also obtained and reviewed. One or more of the following techniques was used for dose reduction: Automated exposure control, adjustment of the mA and/or kV according to patient size, use of iterative reconstruction technique. DLP: 71 mGy-cm COMPARISON: Correlation is made with PA and lateral views of the chest dated 02/14/2019. FINDINGS: Lung nodules: There is an irregularly-shaped 10 x 8 mm opacity at the right lung apex (series 4, image 28) which contains air bronchograms. There is a subcentimeter groundglass opacity in the left upper lobe (series 4, image 48). A calcified granuloma is seen in the right middle lobe (series 4, image 113). Emphysema: mild Coronary Calcification: mild Aortic Arch Calcification: none Potentially Significant Incidentals : none Additional Chest Findings: There is no pleural or pericardial effusion. No mediastinal or axillary lymphadenopathy is identified. Visualized upper abdomen: The visualized portions of the liver, spleen, and adrenals have an unremarkable unenhanced appearance. There is cholelithiasis. CT/CT lung screening IMPRESSION: Irregularly-shaped 10 x 8 mm opacity at the right lung apex. LUNG-RADS ASSESSMENT: Lung-RADS 4A: Suspicious MANAGEMENT: 3 month LDCT Category S: N/A Electronically signed by: Jonathan May MD 11/07/2024 10:45 AM EDT
== END 2024-11-07 10:02 | disposition home or self-care (01) ==
LOC: HO.CT 10:01
PROVIDERS: PCP Internal Medicine; Visit Provider Physician Assistant Medical
DX: Z12.2 Encounter for screening for malignant neoplasm of respiratory organs (principal); F17.210 Nicotine dependence, cigarettes, uncomplicated
CPT/HCPCS: 71271; G0296

== ENCOUNTER → 2024-11-07 10:02 | Outpatient (BNV) | payer MEDICARE, SELFPAY | PROVIDERS: PCP Internal Medicine; Visit Provider Radiology Diagnostic Radiology | DX: Z12.2 Encounter for screening for malignant neoplasm of respiratory organs (principal); F17.210 Nicotine dependence, cigarettes, uncomplicated; R91.8 Other nonspecific abnormal finding of lung field | CPT/HCPCS: 71271 ==

== ENCOUNTER 2024-12-30 08:46 | Day surgery (SDC) | payer MEDICARE, SELFPAY ==
--- OUTSIDE RECORDS SUMMARY | 2024-12-10 06:20 | XMS_ITS ---
Author Organization [facility] Address [address] [place] [address] Care Team Providers Care Director Search Name Role Phone Marly Miller M.D. Primary Care Provider Unavail eliseo Damon JrPhoenix Unavailable REASON FOR VISIT Patient presents today for screening colon Medications Medication SIG (Take, Route, Frequency, Duration) Notes Start Date End Date Status MiraLax (colon prep) 8.3 ounce ((238) grams mixed with Gatorade or Crystal Light orally begin at 5:00 p.m. the day before the procedure; Duration: 1 day 06/25/2019 Not-Taking Vitamin D3 1.25 MG (24042 UT) 1 capsule Orally Once a day Active Atorvastatin Calcium 20 MG TAKE 1 TABLET BY MOUTH EVERY DAY Oral; Duration: 90 Active Immunizations Vaccine Route Administration Date Status Comme nts Influenza Unknown 12/10/2024 Refused Social History Tobacco Use: Social History Observation Description Date Details (start date - stop date) Former Smoker NA - NA Alcohol Screen Question Answer Notes Did you [...] drinks (2 points) Points 4 Interpretation Positive Tobacco Control (Standard) Question Answer Notes Tobacco use: Former smoker AUDIT-C (Standard) Question Answer Notes Did you have a drink contain ing alcohol in the past year? Yes How often did you have a dri nk containing alcohol in the past year? 2 to 3 times a week (3 points) How many drinks did you have on a typical day when you were drinking in the past year? 3 or 4 drinks (1 point) How often did you have six o r more drinks on one occasion in the past year? Less than monthly (1 point) Points 5 Interpretation Positive Problems Problem Type SNOMED Code ICD Code Onset Dates Problem Status W/U Status Risk Notes Problem Screening for malignant neoplasm of colon (153421156) Encounter for screening for malignant neoplasm of colon (Z12.11) Active confirmed Problem History of adenomatous polyp of colon (076138637) History of adenomatous polyp of colon (Z86.0101) Active confirmed Vital Signs Temperature 97.7 degrees Fahrenheit 12/11/19 25 Blood pressure systolic 001 mm Hg 12/11/19 25 Blood pressure diastolic 01 mm Hg 025 Height 71 in 12/10/2024 Weight 221.6 lbs 12/10/2024 BMI 30.9 kg/m2 12/10/2024 Encounters Encounter Location Date Provider Diagnosis [facility] [address] [place] [address] 12/10/2024 Phoenix Damon Jr Encounter for screening for malignant neoplasm of colon Z12.11 ; Encounter for other preprocedural examination Z01.818 and History of adenomatous polyp of colon Z86.0101 Assessments Encounter Date Diagnosis (ICD Code) Assessment Notes Treatment Notes Treatment Clinical Notes Section Notes 12/10/2024 Encounter for screening for malignant neoplasm of colon (ICD-10 - Z12.11) We discussed colonoscopy today. We discussed risks and benefits of the procedure today. He understands these and agrees to proceed. This will be scheduled at his convenience. 12/10/2024 Encounter for other preprocedural examination (ICD-10 - Z01.818) We discussed colonoscopy today. We discussed risks and benefits of the procedure today. He understands these and agrees to proceed. This will be scheduled at his convenience. 12/10/2024 History of adenomatous polyp of colon (ICD-10 - Z86.0101) We discussed colonoscopy today. We discussed risks and benefits of the procedure today. He understands these and agrees to proceed. This will be scheduled at his convenience. Plan Of Treatment Future Test Test Name Order Date COLONOSCOPY 12/10/2024 Next Appt Details Follow Up: 1 Year, Reason: Provider Name:Phoenix jay Jr, 12/30/2024 12:40:00 PM, [address] [place] [address] , [place], [place], [phone], Progress Notes * JACKIE BARRIENTOSDOB: 6 (69 yo M)Acc No.[id number]:12/10/2024 Progress Notes Patient: JACKIE DAILEY Provider: Lisa Damon MD :1955 A ge:69 Y S ex:Male Date:12/10/2024 Address:[address] [place], [place] [phone] Pcp:Marly Miller M.D. Subjective: * Chief Complaints: * 1 . Patient presents today for screening colon. * HPI: N ew symptom(s): The patient is a pleasant 69-year-old man seen today for his preoperative colonoscopy visit. He has a prior history of colon polyps and last underwent colonoscopy in August 2019 which showed a tubular adenoma. 5-year follow-up was recommended. He has no complaints of rectal bleeding, rectal pain, abdominal pain, or other change in bowel movements. He reports CT scanning was done because of his history of tobacco use in the past which showed a nodule. * ROS: G eneral/Constitutional: Change in appetite d enies. F atigue d enies. ? E NT: Patient denies d ifficulty swallowing. R espiratory: Patient denies s hortness of breath. C ardiovascular: Patient denies c hest pain. G astrointestinal: Comments S [facility] for details. G enitourinary: Difficulty urinating d enies. I ncontinence d enies. M usculoskeletal: Patient denies m uscle aches. S kin: Patient denies p ruritis. N eurologic: Patient denies l ow back pain. P sychiatric: Patient denies m ental or physical abuse. * Medical History: E levated cholesterol, low vitamin D. * Surgical History: n ose surgery . * Family History: F ather: . M other: alive. maternal hx of colon cancer uncles Patients son had prostate cancer that traveled to the [facility]. * Social History: T obacco Use: T obacco Control (Standard) T obacco use: F ormer smoker. D rugs/Alcohol: A lcohol Screen D id you have a drink containing alcohol in the past year? Y es, H ow often did you have a drink containing alcohol in the past year? 2 to 4 times a month (2 points), H ow many drinks did you have on a typical day when you were drinking in the past year??5 or 6 drinks (2 points), P oints 4 , I nterpretation P ositive. M iscellaneous: M arital status: single. 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 D rug/Alcohol: A NOLAN-C (Standard) D id you have a drink containing alcohol in the past year? Y es,?How often did you have a drink containing alcohol in the past year? 2 to 3 times a week (3 points), H ow many drinks did you have on a typical day when you were drinking in the past year??3 or 4 drinks (1 point), H ow often did you have six or more drinks on one occasion in the past year? L ess than monthly (1 point), P oints 5 , I nterpretation P ositive.? * Medications: T aking Atorvastatin Calcium 20 MG Tablet TAKE 1 TABLET BY MOUTH EVERY DAY Oral , Taking Vitamin D3 1.25 MG (62012 UT) Tablet 1 capsule Orally Once a day , Not-Taking/PRN MiraLax (colon prep) 8.3 ounce ((238) grams mixed with Gatorade or Crystal Light orally begin at 5:00 p.m. the day before the procedure , Medication List reviewed and reconciled with the patient Objective: * Vitals: W t:221.6lbs, Ht: 71 in, BMI:30.9Index, BP:001/01mm Hg, Temp:97.7, Wt-k.52. * Examination: G eneral Examination: GENERAL APPEARANCE: i n no acute distress. HEAD: n ormocephalic. EYES: s clera non-icteric. ORAL CAVITY: m ucosa moist. NECK/THYROID: n o lymphadenopathy. SKIN: a nicteric. HEART: S 1, S2 normal, no murmurs. LUNGS: c lear to auscultation bilaterally. CHEST: n ormal shape and expansion. ABDOMEN: s oft, nontender, nondistended, bowel sounds present, no organomegaly . EXTREMITIES: n o clubbing, cyanosis, or edema. PSYCH: c ognitive function intact. Assessment: * Assessment: 1. E ncounter for other preprocedural examination - Z01.818 (Primary) 2 . E ncounter for screening for malignant neoplasm of colon - Z12.11 3 . H istory of adenomatous polyp of colon - Z86.0101 We discussed colonoscopy tod ay. We discussed risks and benefits of the procedure today. He understands these and agrees to proceed. This will be scheduled at his convenience. Plan: * Treatment: * Immunizations: Influenza (Not administered - Refused: Patient decision) * Procedure Codes: 3 017F COLORECTAL CA SCREEN DOC REV, G9903 Pt scrn tbco id as non user, G8785 BP SCR NOT PRFRM REC REASON NOS * Preventive Medicine: Counseling: C are goal follow-up plan: A sophia Normal BMI Follow-up D ietary management education, guidance, and counseling, B UT management provided Y es. Screenings: F all Risk Screening F all Risk Assessment: N o falls in the past year, S creening: N o falls in the past year, A ssessment: N ot performed, no reason specified, P obinna of Care: N ot documented, no reason specified. * Follow Up: 1 Year * * Sign off status: Completed true * Provider: Lisa Damon MD Date: Generated for Omari jack/Edmund/eTransmitting on: 03:09 PM EDT History and Physical Notes * HPI (History of Present Illness) Category Sub-Category Detail Notes Category Not es New symptom(s) The patient i s a pleasant 69-year-old man seen today for his preoperative colonoscopy visit. He has a prior history of colon polyps and last underwent colonoscopy in August 2019 which showed a tubular adenoma. 5-year follow-up was recommended. He has no complaints of rectal bleeding, rectal pain, abdominal pain, or other change in bowel movements. He reports CT scanning was done because of his history of tobacco use in the past which showed a nodule. Examination Category Sub-Category Detail Notes Category Not es General Examination GENERAL APPEARANCE: in no acute di stress HEAD: normocephalic EYES: sclera non-icteric NECK/THYROID: no lymphadenopathy HEART: S1, S2 normal, no mu rmurs CHEST: normal shape and exp ansion LUNGS: clear to auscultatio n bilaterally ABDOMEN: soft, nontender, non distended, bowel sounds present, no organomegaly SKIN: anicteric EXTREMITIES: no clubbing, cyanosi s, or edema PSYCH: cognitive function i ntact ORAL CAVITY: mucosa moist
--- OUTSIDE RECORDS SUMMARY | 2024-12-11 15:09 | XMS_ITS | Data Portability ---
Author Organization [place] [facility] Address [address] [place] [address] Care Team Providers Care Machine Gun Mechanic Name Role Phone ShawnaPLACIDO TRIPP Referring Provider Assessment Encounter Date Assessment Date Assessment LastModified [...] destructio n 2024 025 ATHENAFAX [facility] [place], [address] [facility], [address], [place], [address], 10:14:33 Medication Orders None recorded. Patient TargetsNo targets recorded. Patient InstructionsNo instructions recorded. Reason for Referral None Reported. Results Created Date Observation Date Name Description Value Unit Range Abnormal Flag Note LastModifiedBy Organization Detail LastModifiedTime 07/03/19 CT, sinus es, w/o contr ast No observ ation record ed. [email or web address] [facility] [address] [facility], [place], [address], 07/02/2024 11:56:52 07/10/19 25 07/08/2024 CT, sinus es, w/ contr ast No observ ation record ed. [email or web address] [facility] [place] [address] [facility] [address], [place], [address], 07/10/2024 10:17:41 08/20/19 25 07/31/2024 clini julian photo * No observ ation record ed. [email or web address] Not Available 09/2024 10:02:49 Result Notes None recorded. Problems Name Problem SNOMED Code Status Onset Date Resolution Date Notes Provider Name and Address Organization Details Recorded Time Lesion of nasal cavity 75730473409258 9108 Active 2024 MONICA Vanegas MD [address] [place] [address], [facility] [place], [address], [facility] 5 10:58:02 Recurrent bleeding of nose Active 2024 MONICA Vanegas MD [address] [place] [address], [facility] [place], [address], [facility] 5 10:58:06 Disorder of face 779030542 Active 2024 Krystle brito [place] [facility] 5 11:55:21 Lesion of nose 333643444 Active 2024 MONICA Vanegas MD [address] [place] [address], [place], [address], [facility] 5 16:16:10 Problem Notes None recorded. Procedures Surgical History Date Name Laterality Status Provider Name and Address Organization Details Recorded Time 06/19/202 5 nasal endoscopy with nasal polypectomy completed MONICA JOHANSEN MD [address] [facility],[place] [address], [place], [address], [facility] - [facility] 07/31/2024 11:10:33 5 NasalEndoscopy_ DP completed MONICA JOHANSEN MD [address] [facility] [address], [place], [address], [facility] - [facility] 06/20/2024 10:57:44 Imaging Results None recorded. Procedure [...] Updated DateTime 06/20/2024 180.34 cm 32.1 kg/m2 267109.25 g Pavan Bain [place] [facility] 06/20/2024 10:42:31 Date Recorded Body height Body mass index (BMI) Body weight Provider Name and Address Organization Details Last Updated DateTime 08/12/2024 180.34 cm 32.1 kg/m2 548293.25 g Amalia Dorantes [facility] 08/12/2024 10:02:48 Social History None recorded. Functional Status None recorded. Mental Status None recorded. Family History Nothing Reported. Medical History Condition Response Allergies/Hayfever N Heart Problems N Anxiety N Tonsil Infections N Emphysema N Migraines N Thyroid Problems N Glaucoma N Depression N COPD N Developmental Delay N Nasal or Sinus Problems N Anemia N Immune System Disorder N Anesthesia Complications N Heart Attack ([place]) N Other Skin Condition N Diabetes N Rhinitis N Bleeding Disorder N Food Allergy N Arthritis N Hearing Loss N Hyperlipidemia N Cancer N Stroke N Dementia N Nasal polyps N Asthma N Sleep Disorder N GERD/Reflux N High Cholesterol N Liver Disease N Headaches N Fibromyalgia N Hypertension N Speech Delay N Kidney Disease N Past Encounters Encounter ID Performer Location Encounter Start Date Encounter Closed Date Diagnosis/Indication Diagnosis SNOMED-CT Code Diagnosis ICD10 Code Diagnosis IMO Codes Diagnosis Note [id number] MONICA JOHANSEN MD [facility] on [address] [place] [address] 06/20/2024 10:16:07 06/20/2024 10:57:41 Lesion of nasal cavity 0976867075 46652473 J34.89 2403650 He has a friable lesion of his [...] bony destructio n. Recurrent bleeding of nose 7583478737 102 R04.0 76615644 Likely due to the granuloma. I discussed using Afrin soaked cotton balls and pressure if he has bleeding in the interim or if severe bleeding he needs to go to the emergency room. [id number] ALEJANDRO BOWMAN PA-C [facility] [address] [place] [address] 08/12/2024 09:47:57 08/12/2024 10:15:50 Lesion of nose 060778400 J34.89 026137 Recurrent bleeding of nose 5514959247 102 R04.0 83415071 Health Concerns Section Related Observation LastModified by Organization Detai ls LastModified Time None Recorded Concern Status LastModified by Organization Details LastModified Time None Recorded Advance Directives Directive None Recorded Payers Insurance Date Sequence Insurance Name Policy Number Policy Wiley Covered Member ID Wiley Member ID Guarantor Name 08/12/2024 1 [place] (MEDICARE [place]PLACEMENT PPO) [id number] Karri Burr [id number] Karri Burr 06/20/2024 1 [place] Karri Burr [id number] Karri Burr 06/20/2024 1 [place] Karri Burr [id number] Karri Burr Notes Date Note Type Note Provider Name and Address Organization Details Recorded Time 06/20/2024 text/html ROS as noted in the HPI Hx of epistaxis on the right for the last 6 months. He saw an ENT in [place] who noted a growth and referred him here. Denies pain. Denies nasal obstruction. He is not on blood thinners. It bleeds a few times a week. He does smoke. He has not had any imaging. MONICA JOHANSEN MD [address] [facility],[address], [address], [facility] 06/20/2024 11:04:28 08/12/2024 text/html ROS as noted in the HPI 69yo male presents following nasal lesion excision on 07/29/[address] Johansen. He is doing well post-op without recurrence of nasal bleeding. Pathology shows benign ulcerated nasal mucosa with granulation tissue. He has been using mupirocin 3 times daily. No new concerns. SHIV FAM MD [address] [place] [address],[place] [address], [place], [address], [facility] 08/12/2024 19:17:23
--- OUTSIDE RECORDS SUMMARY | 2024-12-11 15:09 | XMS_ITS | Encounter Summary ---
Author Organization [facility] Address [address] [place] [address] Phone Care Team Providers Care Rn Recovery Name Role Phone Marly Friedman MD Primary Care Provider + [phone] Encounter Details Date Type Department Care Team (Late st Contact Info) Description 07/31/2024 Procedure Pass OR Admitting Dept - Virtual Department [address] [place] [address] Social History Tobacco Use Types Packs/Day Years [...] on filedocumented in this encounter Care Teams Rn Recovery Relationship Specialty Start Date End Date Marly Friedman MD [address] [place] [address] [place] [address] PCP - General Internal Medicine 07/30/24 documented as of this encounter Additional Source Comments The information contained in this document represents components of the legal health record. It is not the complete legal health record.[facility]
--- OUTSIDE RECORDS SUMMARY | 2024-12-11 15:09 | XMS_ITS | Clinical Summary ---
Author Organization [facility] Address [address] [place] [address] Phone Care Team Providers Care Space And Miss[employer] Operations Spacelift Name Role Phone Marly Friedman MD Primary Care Provider + [phone] Allergies No known active allergies Medications atorvastatin [...] file Insurance MEDICARE PART A & B [facility] MEDICARE PPO BLUE REPLACEMENT MEDICARE PART A & B MEDICARE PART A & B [facility] MEDICARE PPO BLUE REPLACEMENT MEDICARE PART A & B [place] RE[place] MEDICARE PART A & [place] RE[place] MEDICARE PART A & B Care Teams [employer] Relationship Specialty Start Date End Date Marly Friedman MD [address] [place] [address] [place] [address] PCP - General Internal Medicine 07/30/24 Additional Source Comments The information contained in this document represents components of the legal health record. It is not the complete legal health record.[facility]
--- OUTSIDE RECORDS SUMMARY | 2024-12-11 15:09 | XMS_ITS | Patient Health Record ---
Author Organization [facility] Address [address] [place] [address] Care Team Providers Care Information Systems Analyst Name Role Phone Marly Miller M.D. Primary Care Provider Unavail able Nelson Coates Phoenix Unavailable Reason For Referral No Information Medications Medication SIG (Take, Route, Frequency, Duration) Notes Start Date End Date Status MiraLax (colon prep) 8.3 ounce ((238) grams mixed with Gatorade or Crystal Light orally begin at 5:00 p.m. the day before the procedure; Duration: 1 day 06/25/2019 Not-Taking Vitamin D3 1.25 MG (29307 UT) 1 capsule Orally Once a day Active Atorvastatin Calcium 20 MG TAKE 1 TABLET BY MOUTH EVERY DAY Oral; Duration: 90 Active Immunizations Vaccine Route Administration Date Status Comme nts Influenza Unknown 01/12/2019 Administered Influenza Unknown 12/10/2024 Refused Social History Tobacco Use: Social History Observation Description Date Details (start date - stop date) Former Smoker NA - NA Tobacco Control (Standard) Question Answer Notes Tobacco [...] Problem Screening for malignant neoplasm of colon (466802540) Encounter for screening for malignant neoplasm of colon (Z12.11) Active confirmed Problem Pre-procedure evaluation check (741243129) Encounter for other preprocedural examination (Z01.818) Active confirmed Problem History of adenomatous polyp of colon (774399167) History of adenomatous polyp of colon (Z86.0101) Active confirmed Vital Signs Temperature 97.7 degrees Fahrenheit 12/10/2024 Blood pressure diastolic 01 mm Hg 12/10/2024 Height 71 in 12/10/2024 Blood pressure systolic 001 mm Hg 12/10/2024 Weight 221.6 lbs 12/10/2024 BMI 30.9 kg/m2 12/10/2024 Encounters Encounter Location Date Provider Diagnosis [facility] [address] [facility] [address] [place] [phone] 12/10/2024 Phoenix Damon Jr Encounter for screening [...] Test Test Name Order Date COLONOSCOPY 06/25/2019 COLONOSCOPY 12/10/2024 Next Appt Details Provider Name:Phoenix jay Jr, 12/30/2024 12:40:00 PM, [address] [facility] , [place], [place], [phone], Insurance Providers Payer Name Payer Address Payer Phone Subscriber Number Group Number Insured Name Patient Relationship to Insured Coverage Start Date Coverage End Date [facility] [address] [place], [place] [id number] [phone] [id number] JACKIE BARRIENTOS Self - patient is the insured Medical (General) History Medical History History ICD Code elevated cholesterol low vitamin D Surgical History Surgery Date(Month/Year) nose surgery
[2024-12-26 12:20] VITALS: BMI 30.9
--- NOTE | 2024-12-26 13:16 | HO.ANESPROP2 ---
Documented by User: Beckie Montes NP 12/26/24 13:16 HPI - Anesthesia Eval Consult details Narrative: 69yo M for Colonoscopy PMFSH Active Problems Active Problems: All Active Problems Pulmonary nodules (Acute) Abnormal stress ECG with treadmill (Acute) Abnormal EKG (Acute) Tubular adenoma of colon (Acute) Nicotine dependence, cigarettes, uncomplicated (Acute) Hyperlipidemia (Acute) Family history of coronary artery disease (Acute) Past Medical History Medical History Abnormal EKG BPH (benign prostatic hyperplasia) Tubular adenoma of colon Hyperlipidemia Nicotine dependence, cigarettes, uncomplicated Family history of coronary artery disease Family History Family History Father Kidney disease Mother History of four vessel coronary artery bypass graft Sister History of heart valve replacement Sister Ovarian cancer Surgical History Surgical History History of nasal polypectomy History of colonoscopy Social History Social History Are you a primary critical care technician to a significant other at home: No Do you presently have visiting nurse or other home services: No Patient Tobacco Use Status: Former Tobacco user Tobacco use type: Cigarette Cigarettes Per Day: 5 Years Smoked: (onset 16yo, 1/2ppd x 53yrs, now 1/4ppd, 25+PYH) e-Cigarette/Vaping Use: Currently Using Have you been hit, kicked, punched, or otherwise hurt by someone within the past year? If so, by whom?: No Are you DNR?: No Advance Directives: No Advance Directives Information Provided: Yes Meds Allergies Allergy/AdvReac Type Severity Reaction Status Date / Time No Known Allergies (No Known Allergy Verified 09/11/24 13:59 Allergies*) Exam Height,Weight and Vital Signs: Height 5 ft 11 in Weight 100.516 kg Assessment and Plan Assessment Anesthesia Assessment: Chart Reviewed Documented by User: Kailee Puentes MD 12/30/24 09:34 [facility] Past Medical History Medical History Abnormal EKG BPH (benign prostatic hyperplasia) Tubular adenoma of colon Hyperlipidemia Nicotine dependence, cigarettes, uncomplicated Family history of coronary artery disease Family History Family History Father Kidney disease Mother History of four vessel coronary artery bypass graft Sister History of heart valve replacement Sister Ovarian cancer Surgical History Surgical History History of nasal polypectomy History of colonoscopy History of Problems with Anesthesia: No Social History Social History Are you a primary critical care technician to a significant other at home: No Do you presently have visiting nurse or other home services: No Patient Tobacco Use Status: Former Tobacco user Tobacco use type: Cigarette Cigarettes Per Day: 5 Years Smoked: (onset 16yo, 1/2ppd x 53yrs, now 1/4ppd, 25+PYH) e-Cigarette/Vaping Use: Currently Using Have you been hit, kicked, punched, or otherwise hurt by someone within the past year? If so, by whom?: No Are you DNR?: No Advance Directives: No Advance Directives Information Provided: Yes Meds Allergies Allergy/AdvReac Type Severity Reaction Status Date / Time No Known Allergies (No Known Allergy Verified 09/11/24 13:59 Allergies*) Exam Airway Mallampati Class: III TM Dist: >3cm Neck ROM: Full Loose/Missing/Broken Teeth: No Heart: RRR Lungs: CTA Assessment and Plan Assessment Anesthesia Assessment: Anesthesia Plan Discussed Final Anesthetic Review History of Problems with Anesthesia: No NPO: Yes ASA Class: II Final Preanesthetic Review: Meds/Allgs Chart Reviewed, Consent Obtained/Reviewed and Anes Risks/Benef Reviewed Patient Risk: Low Procedure Risk: Low Anesthetic Plan Anesthetic Plan: MAC: Disposition: Standard PACU
[2024-12-30] MEDS: Lactated Ringers 1,000 ML 100 ML IVCONT (09:13)
[2024-12-30 09:14] VITALS: BP 151/94; PULSE 86; RESP 18; TEMP 36.6; O2SAT 97; BMI 30.3
--- NOTE | 2024-12-30 10:08 | MHC.SHP ---
Pre-Procedural Eval Section A - 24 Hr Update-Section A only Date of Service: 12/30/24 The patient is an INPATIENT: No Changes since office visit: No Cold of Flu in the past 2 weeks, No New Medical Problems, No Changes in Medication and No Patient answered all questions The patient has been examined within 24 hours of the surgical procedure. The History & Physical has been completed within 30 days and I have reviewed it.: Yes Section B - Complete if H&P > 30 days Chief Complaint: screening Allergies: Allergies Allergy/AdvReac Type Severity Reaction Status Date / Time No Known Allergies (No Known Allergy Verified 12/30/24 09:34 Allergies*) Plan I have reviewed the history and physical and performed a pertinent physical examination on my patient. No changes have occurred unless specified. Time Spent With Patient Time: Total time managing care of this patient today ____ minutes.
[2024-12-30 11:01] VITALS: BP 109/73; PULSE 95; RESP 14; TEMP 36.5; O2SAT 97
[2024-12-30 11:16] VITALS: BP 112/71; PULSE 89; RESP 15; TEMP 36.8; O2SAT 97
--- NOTE | 2024-12-30 12:06 | OP_ITS ---
DATE OF SERVICE: 12/30/2024 SURGEON: Phoenix Damon MD INDICATIONS: Colon cancer screening and prior history of adenomatous colon polyps. PREOPERATIVE DIAGNOSIS: POSTOPERATIVE DIAGNOSIS: PROCEDURE PERFORMED: Colonoscopy to the terminal ileum with biopsy. ESTIMATED BLOOD LOSS: COMPLICATIONS: ANESTHESIA: Medications, monitored anesthesia care. ASSISTANTS: SPECIMENS: DESCRIPTION OF PROCEDURE: History and physical was performed. The risks and benefits of the procedure were explained to the patient and informed consent was obtained. The patient was placed in a left lateral decubitus position. A digital rectal exam was performed and was found to be normal. The Olympus pediatric video colonoscope was introduced into the rectum and advanced to the cecum. The cecum was identified by transillumination, palpation, and identification of ileocecal valve. Examination was performed. The scope was removed. He tolerated the procedure well, returned to recovery area in stable condition. FINDINGS: The terminal ileum was examined and appeared normal. The visualized colonic mucosa was normal. In the cecum was a less than 5 mm sessile polyp, which was removed using a biopsy forceps. No other polyps were identified. The quality of the prep was good. Retroflexed examination showed moderate-sized internal hemorrhoids. A few diverticula were seen in the sigmoid. IMPRESSION: Colon polyp. RECOMMENDATION: Follow up the biopsy results. MD THERESA Wright/MOIZ / [id number]
== END 2024-12-30 12:30 | disposition home or self-care (01) ==
PROVIDERS: PCP Internal Medicine; Visit Provider Internal Medicine Gastroenterology
PROC: 0DJD8ZZ Inspection of Lower Intestinal Tract, Via Natural or Artificial Opening Endoscopic (ICD-10-PCS; CPT 45378; principal; 2024-12-30 10:50)
DX: Z12.11 Encounter for screening for malignant neoplasm of colon (principal); Z86.0101 Personal history of adenomatous and serrated colon polyps; K57.30 Diverticulosis of large intestine without perforation or abscess without bleeding; K64.8 Other hemorrhoids; D12.0 Benign neoplasm of cecum
CPT/HCPCS: 45380; 88305; J2704